=== PATIENT | male | born 1970 | race Caucasian/White ===

== ENCOUNTER 2019-04-02 20:06 | Emergency (ER) | payer OTHER ==
[~2019-04-02] VITALS: Ht 180.3 cm; Wt 95.3 kg
[2019-04-02 20:10] VITALS: Ht 180.3 cm; Wt 95.3 kg
[2019-04-02 21:23] VITALS: BP 108/68
== END 2019-04-02 21:23 | disposition home or self-care (01) ==
LOC: ED 20:06
DX: R55 Syncope and collapse (principal); R11.2 Nausea with vomiting, unspecified; R42 Dizziness and giddiness